=== PATIENT | male | born 1980 | race Caucasian/White ===

== ENCOUNTER 2021-11-29 17:03 | Emergency (ER) | payer SELFPAY ==
[~2021-11-29] VITALS: Ht 180.3 cm; Wt 68.1 kg
[2021-11-29 17:49] VITALS: BP 141/77
[2021-11-29] MEDS ORDERED: NAPR-514 PO (18:13)
[2021-11-29] MEDS ORDERED: HYDR-2761 PO (18:13)
[2021-11-29] MEDS ORDERED: AMOX875T PO (18:13)
--- NOTE | 2021-11-29 18:14 | PHYS DOC ---
Past Medical History Past Surgical History: No Surgical History (RYAN HOOD PROCUREMENT CLERK) General Adult EDM: Chief Complaint: DENTAL PROBLEM HPI: HPI: Patient is a 41 year old male who presents to the ED today complaining of mild pain and swelling on the left cheek and gum, symptoms began on Sunday. Patient denies any fever or trismus. (RYAN HOOD PROCUREMENT CLERK) Review of Systems: Review of Systems: HENT: Reports left cheek and gum swelling Musculoskeletal: Denies back pain or joint pain. [] Integument: Denies rash. [] Psychiatric: Denies depression or anxiety. [] (RYAN HOOD PROCUREMENT CLERK) Heart Score: C/O Chest Pain: N/A Risk Factors: Risk Factors: DM, Current or recent (<one month) smoker, HTN, HLP, family history of CAD, obesity. Risk Scores: Score 0 - 3: 2.5% MACE over next 6 weeks - Discharge Home Score 4 - 6: 20.3% MACE over next 6 weeks - Admit for Clinical Observation Score 7 - 10: 72.7% MACE over next 6 weeks - Early Invasive Strategies (RYAN HOOD PROCUREMENT CLERK) Allergies: Allergies: Allergies Coded Allergies Type Severity Reaction Last Updated Verified No Known Drug Allergies 11/29/21 No (RYAN HOOD PROCUREMENT CLERK) Physical Exam: PE: Constitutional: Well developed, well nourished, no acute distress, non-toxic appearance. [] HENT: Normocephalic, atraumatic, bilateral external ears normal, oropharynx moist, no oral exudates, nose normal. [] Left cheek with mild swelling consistent of a dental abscess, tooth #17 is broken, dental caries noted, no gum erythema, no drainable abscess noted. Skin: Warm, dry, no erythema, no rash. [] Back: No tenderness, no CVA tenderness. [] Extremities: No tenderness, no cyanosis, no clubbing, ROM intact, no edema. [] Neurologic: Alert and oriented X 3, normal motor function, normal sensory function, no focal deficits noted. [] Psychologic: Affect normal, judgement normal, mood normal. [] (RYAN HOOD PROCUREMENT CLERK) Current Patient Data: Vital Signs: Vital Signs Date Time Temp Pulse Resp B/P (MAP) Pulse Ox O2 Delivery O2 Flow Rate FiO2 11/29/21 17:49 98.4 90 12 141/77 (98) 95 Room Air 98.4 (RYAN HOOD PROCUREMENT CLERK) EKG: EKG: [] (RYAN HOOD JAIME) Radiology/Procedures: Radiology/Procedures: [] (RYAN HOOD JAIME) Course & Med Decision Making: Course & Med Decision Making Pertinent Labs and Imaging studies reviewed. (See chart for details) This is a 41-year-old male patient with a dental abscess, nothing to drain today. Discharged on amoxicillin, naproxen and 8 tablets of [place]. Provided dental list for follow-up. (RYAN HOOD PROCUREMENT CLERK) Dragon Disclaimer: Dragon Disclaimer: This electronic medical record was generated, in whole or in part, using a voice recognition dictation system. (RYAN HOOD JAIME) Departure Departure Impression: Primary Impression: Dentalgia Additional Impression: Dental abscess Disposition: HOME / SELF CARE / HOMELESS Condition: STABLE Referrals: NO PCP (PCP) follow up with your dentist in one week Patient Instructions: Dental Abscess Additional Instructions: You were evaluated in the emergency room and noted to have a dental abscess. Take the prescribed medications as ordered. Please follow-up with a dentist from the list provided as soon as you can Scripts Hydrocodone Bit/Acetaminophen (HYDROCODONE-APAP 5-325 ) 1 Tab Tablet 1 TAB PO PRN Q6HRS PRN for PAIN, #8 TAB 0 Refills Prov: RYAN HOOD PROCUREMENT CLERK 11/29/21 Naproxen (NAPROXEN) 500 Mg Tablet 1 TAB PO BID for pain, #14 TAB 0 Refills Prov: RYAN HOOD PROCUREMENT CLERK 11/29/21 Amoxicillin (AMOXICILLIN) 875 Mg Tablet 1 TAB PO BID, #20 TAB Prov: RYAN HOOD PROCUREMENT CLERK 11/29/21 Attending Signature I have participated in the care of this patient and I have reviewed and agree with all pertinent clinical information above including history, exam, and recommendations. (KUMAR JACOME DO) RYAN HOOD JAIME Nov 29, 2021 18:14 KUMAR JACOME DO Nov 29, 2021 18:21
== END 2021-11-29 18:31 | disposition home or self-care (01) ==
LOC: ER 17:03
DX: K04.7 Periapical abscess without sinus (principal); K08.89 Other specified disorders of teeth and supporting structures
CPT/HCPCS: 99283